=== PATIENT | female | born 1955 ===

== ENCOUNTER 2018-04-05 08:50 | Day surgery (SDC) | payer OTHER ==
[~2018-04-05 08:50] MED LIST: COZAAR50 MG PO; CYMBALTA20 MG PO; ZOCOR PO
[2018-04-05] MEDS ORDERED: COLACE100 MG PO (11:25)
[2018-04-05] MEDS ORDERED: PERCOCET 5-3251 EACH PO (11:25)
== END 2018-04-05 16:20 | disposition home or self-care (01) ==
LOC: CIR.AMB 08:50
DX: K62.82 Dysplasia of anus (principal)

== ENCOUNTER 2020-06-30 09:31 | Emergency (ER) | payer OTHER ==
[~2020-06-30] VITALS: Ht 167.6 cm; Wt 81.6 kg
[~2020-06-30 09:31] MED LIST changes: +COLACE100 MG PO; +PERCOCET 5-3251 EACH PO
[2020-06-30] MEDS ORDERED: AMOX-CLAV 875-1 EACH PO (10:21)
[2020-06-30] MEDS ORDERED: INTESTINEX680 M2 PO (10:21)
[2020-06-30] MEDS ORDERED: PEPCID AC20 MG PO (10:21)
== END 2020-06-30 10:27 | disposition home or self-care (01) ==
LOC: ER 09:31
DX: S81.852A Open bite, left lower leg, initial encounter (principal); W55.01XA Bitten by cat, initial encounter; Y93.89 Activity, other specified; Y92.488 Other paved roadways as the place of occurrence of the external cause; Y99.8 Other external cause status